=== PATIENT | female | born 2000 | race Caucasian/White ===

== ENCOUNTER 2019-02-26 20:46 | Emergency (ER) | payer BC ==
[2019-02-26 20:55] VITALS: RESP 18
--- NOTE | 2019-02-26 22:18 | XR ---
EXAM: XR Left Elbow Complete, 3 or More Views CLINICAL HISTORY: Pain TECHNIQUE: Frontal, lateral and oblique views of the left elbow. COMPARISON: No relevant prior studies available. FINDINGS: Bones/joints: No acute fracture or malalignment. Soft tissues: Diffuse soft tissue edema. IMPRESSION: Diffuse soft tissue edema. No acute osseous abnormality.
--- NOTE | 2019-02-26 23:22 | US ---
EXAM: US Duplex Left Upper Extremity Veins CLINICAL HISTORY: Pain TECHNIQUE: Real-time duplex ultrasound scan of the left upper extremity veins integrating B-mode two-dimensional vascular structure, Doppler spectral analysis, color flow Doppler imaging and compression. COMPARISON: No relevant prior studies available. FINDINGS: Limitations: Patient's range of motion. Deep veins: Unremarkable. Normal compression and normal response to augmentation. Superficial veins: Unremarkable as visualized. Soft tissues: No sonographically detectable solid or cystic mass. IMPRESSION: No evidence of deep venous thrombosis in the left upper extremity.
[2019-02-26 23:35] VITALS: BP 121/88; PULSE 107; TEMP 98.9
--- NOTE | 2019-02-26 23:51 | ED ---
Upper Extremity HPI <Jovanna Guo P - Last Filed: 02/26/19 23:59> - General Source: patient, RN notes reviewed, old records reviewed Mode of arrival: ambulatory Limitations: no limitations <Nancy Butler - Last Filed: 03/01/19 13:59> - General Chief Complaint: Extremity Injury, Upper Stated Complaint: Arm pain Time Seen by Provider: 02/26/19 21:16 - History of Present Illness Initial Comments: Patient is a pleasant 18 year old female whom present with L arm pain and swelling for one week. She reports she was donating plasma, and had a vasovagal episode while she was receiving the blood after plasma remove.d She reports her arms were thrown up in the IV seemed to have moved. She reports joe her arm swelled up, and is now bruising. She reports pain with ROM of elbow. Se is concerned for retained IV material in arm or needle. (Nancy Butler) - Related Data Home Medications Medication Instructions Recorded Confirmed No Known Home Medications 02/26/19 02/26/19 Allergies Allergy/AdvReac Type Severity Reaction Status Date / Time No Known Allergies Allergy Verified 02/26/19 23:04 Review of Systems ROS Other: All systems not noted in ROS Statement are negative. <Jovanna Guo P - Last Filed: 02/26/19 23:59> ROS Other: All systems not noted in ROS Statement are negative. <Nancy Butler - Last Filed: 03/01/19 13:59> ROS Statement: Those systems with pertinent positive or pertinent negative responses have been documented in the HPI. Past Medical History Past Medical History: No Reported History History of Any Multi-Drug Resistant Organisms: None Reported Past Surgical History: No Surgical Hx Reported Past Psychological History: No Psychological Hx Reported Smoking Status: Never smoker Past Alcohol Use History: Occasional Past Drug Use History: None Reported <Nancy Butler - Last Filed: 03/01/19 13:59> General Exam Limitations: no limitations General appearance: alert, in no apparent distress Head exam: Present: atraumatic, normocephalic, normal inspection Eye exam: Present: normal appearance, PERRL, EOMI. Absent: scleral icterus, conjunctival injection, periorbital swelling ENT exam: Present: normal exam, mucous membranes moist Neck exam: Present: normal inspection. Absent: tenderness, meningismus, lymphadenopathy Respiratory exam: Present: normal lung sounds bilaterally. Absent: respiratory distress, wheezes, rales, rhonchi, stridor Cardiovascular Exam: Present: regular rate, normal rhythm, normal heart sounds. Absent: systolic murmur, diastolic murmur, rubs, gallop, clicks Left Upper Arm exam: Present: normal inspection, full ROM Elbow exam: Present: swelling (and bruising over antecubital fossa. ) Forearm Wrist exam: Present: full ROM, swelling. Absent: normal inspection Neuro motor exam: Present: wrist extension intact, thumb opposition intact, thumb IP flexion intact, thumb adduction intact, fingers 2-5 abduction intact Vascular: Present: normal capillary refill Back exam: Present: normal inspection <Nancy Butler - Last Filed: 03/01/19 13:59> Course Vital Signs 02/26/19 02/26/19 20:49 23:34 Temperature 99.6 F 98.9 F Pulse Rate 118 H 107 H Respiratory 18 18 Rate Blood Pressure 161/86 121/88 O2 Sat by Pulse 98 99 Oximetry Medical Decision Making - Radiology Data Radiology results: report reviewed <Nancy Butler - Last Filed: 03/01/19 13:59> - Medical Decision Making 18 year old female with Left arm swelling from plasma donation and IV infiltrate from when IV movedin arm after vagal episode one week ago. She has bruising from when blood was being returned to IV after plasma removed. Patient US is negaive for DT and Xray shows soft tissue swelling. Discussed patient needs to elevate arm. All questions answered and return parameters discussed. (Nancy Butler) - Radiology Data US is negative for left upper extremity DVT. Soft tissue swelling on elbow xray. no foreign body. (Nancy Butler) Disposition <Jovanna Guo - Last Filed: 02/26/19 23:59> Is patient prescribed a controlled substance at d/c from ED?: No Time of Disposition: 23:53 <Nancy Butler - Last Filed: 03/01/19 13:59> Clinical Impression: Localized soft tissue swelling, IV infiltrate Disposition: HOME SELF-CARE Condition: Good Additional Instructions: Keep the arm up and elevated. Return to the emergency department if any alarming signs or symptoms occur. Referrals: None,Stated [Primary Care Provider] - 1-2 days
== END 2019-02-27 00:02 | disposition home or self-care (01) ==
LOC: EC 20:46
DX: T80.818A Extravasation of other vesicant agent, initial encounter (principal)
CPT/HCPCS: 99284

== ENCOUNTER 2019-02-28 16:45 | Emergency (ER) | payer BC ==
[2019-02-28 16:54] VITALS: RESP 18
[2019-02-28 18:21] VITALS: TEMP 98.7
--- NOTE | 2019-02-28 19:55 | US ---
EXAMINATION TYPE: US venous doppler duplex UE LT DATE OF EXAM: 02/28/2019 COMPARISON: US 02/26/19/ CLINICAL HISTORY: Pain. Left arm pain and bruising post donating plasma 02/20/19. No hx of DVT. Pt not on blood thinners. SIDE PERFORMED: Left Left Arm: Limited study due to patient's limited range of motion and poor toleration to probe press ure when compressing over area of concern. No evidence of DVT in veins visualized. Unable to visualiz e brachial veins at lower level near elbow. Cannot rule out DVT in brachial veins at this level. Unab le to visualize ulnar veins. Swelling and bruising left arm. IMPRESSION: Limited exam shows no evidence of deep venous thrombosis in the left arm.
--- NOTE | 2019-02-28 19:56 | US ---
EXAMINATION TYPE: US extremity nonvasculr ltd LT DATE OF EXAM: 02/28/2019 COMPARISON: US CLINICAL HISTORY: Pain. Pain left anterior forearm at elbow post donating plasma on 02/20/19. Bruising and swelling. No hx DVT. Scanned area of pain and bruising left anterior forearm at and near elbow. No obvious abnormalities s een at this time. Limited visibility and evaluation of brachial veins at this level as stated in veno us doppler study today 02/28/19 due to pain and swelling. Patient could not tolerate probe pressure. IMPRESSION: No solid or cystic mass identified in the forearm at the elbow that was the area of conc gracia.
[2019-02-28 20:00] VITALS: BP 148/91; PULSE 88
--- NOTE | 2019-02-28 20:37 | ED ---
Extremity Problem HPI - General Chief complaint: Extremity Problem,Nontraumatic Stated complaint: LEFT ARM PAIN Time Seen by Provider: 02/28/19 17:01 Source: patient Mode of arrival: ambulatory Limitations: no limitations - History of Present Illness Initial comments: Patient is a 18-year-old female presents emergency Department with left arm pain. Patient reports approximately 1 week ago she was giving plasma when she "passed out" causing injury to her left arm from the injection site. Patient waited 4 days and came to the emergency department on Thursday where she was evaluated for possible foreign body and thrombus. Both were negative. Patient reports over the last 3 days the pain has decreased, the swelling has remained the same but she has developed ecchymosis distally to the antecubital region to the wrist. Patient reports tenderness in the antecubital region. Patient denies any numbness or tingling. Patient reports full range of motion in the hand but does have limited range and the elbow especially with extension. - Related Data Home Medications Medication Instructions Recorded Confirmed No Known Home Medications 02/26/19 02/26/19 Allergies Allergy/AdvReac Type Severity Reaction Status Date / Time No Known Allergies Allergy Verified 02/26/19 23:04 Review of Systems ROS Statement: Those systems with pertinent positive or pertinent negative responses have been documented in the HPI. ROS Other: All systems not noted in ROS Statement are negative. Past Medical History Past Medical History: No Reported History History of Any Multi-Drug Resistant Organisms: None Reported Past Surgical History: No Surgical Hx Reported Additional Past Surgical History / Comment(s): oral surgery Past Psychological History: No Psychological Hx Reported Smoking Status: Never smoker Past Alcohol Use History: Occasional Past Drug Use History: None Reported General Exam Limitations: no limitations General appearance: alert, in no apparent distress, obese Head exam: Present: atraumatic, normocephalic, normal inspection Eye exam: Present: normal appearance, PERRL, EOMI Pupils: Present: normal accommodation ENT exam: Present: normal exam, mucous membranes moist, normal external ear exam Neck exam: Present: normal inspection, full ROM Respiratory exam: Present: normal lung sounds bilaterally Cardiovascular Exam: Present: regular rate, normal rhythm, normal heart sounds Extremities exam: Present: tenderness (Tenderness on the proximal anterior region of the left forearm), normal capillary refill (Bilateral), other (+2 ulnar and radial pulses bilaterally). Absent: normal inspection (No erythema noted. Edema in the left upper arm and forearm. Ecchymosis in the anterior aspect of the left forearm.), full ROM (Limited range of motion with extension of left arm.) Back exam: Present: normal inspection, full ROM Neurological exam: Present: alert, oriented X3 Psychiatric exam: Present: normal affect, normal mood Skin exam: Present: warm, intact, normal color Course Vital Signs 02/28/19 02/28/19 02/28/19 16:49 18:19 19:58 Temperature 98.5 F 98.7 F Pulse Rate 97 91 88 Respiratory 18 18 18 Rate Blood Pressure 136/88 166/97 148/91 O2 Sat by Pulse 97 99 99 Oximetry Medical Decision Making - Medical Decision Making Patient is a 18-year-old female presents emergency Department with left arm pain. Ultrasound for DVT and superficial pathologies was performed yielding negative findings. Based on history and physical examination I suspect the ecchymosis to the part of the healing process. I suspect the edema to gradually resolve on its own. The pain appears to be resolving which is a good sign. The arm does not appear erythematous so I have low suspicion for an infection. The ultrasound is also negative for possible infections. Patient advised to continue using compress as advised. Disposition Clinical Impression: Arm pain, left Disposition: HOME SELF-CARE Condition: Stable Instructions (If sedation given, give patient instructions): Superficial Thrombophlebitis (ED), Peripheral Vascular Disease (ED) Additional Instructions: Please continue using compress on the left arm. Please follow-up with primary care. Please return to emergency department if symptoms worsen. Is patient prescribed a controlled substance at d/c from ED?: No Referrals: None,Stated [Primary Care Provider] - 1-2 days Time of Disposition: 20:37
== END 2019-02-28 20:43 | disposition home or self-care (01) ==
LOC: EC 16:45
DX: M79.602 Pain in left arm (principal); R22.32 Localized swelling, mass and lump, left upper limb
CPT/HCPCS: 99283